=== PATIENT | male | born 2000 | race Two or more races ===

== ENCOUNTER 2023-05-12 07:18 | Outpatient (AMB) | payer MEDICAID, SELFPAY ==
--- NOTE | 2023-05-12 07:57 | A.OFFVIS_ITS ---
Intake Vital Signs 05/12/23 08:07 Height 6 ft 2 in Weight 131 lb BMI 16.8 BP 109/63 Blood Pressure Location Lt brachial Position Sitting Pulse 66 Intake Visit Reasons: Epigastric pain Intake Note: Patient new consult for Epigastric pain. Patient cc: abdominal pain, acid reflex with burning sensation,N/V and between diarrhea and constipation. Die Trouble Shooter Required: No Accompanied by: Self / Same As Patient Allergies No Known Allergies Allergy (Verified 05/12/23 07:56) HPI Epigastric pain HPI Details 22-year-old male with no significant pas t medical history comes here today for initial consultation. Patient sent by his PCP. Patient reports epigastric discomfort unable to eat, losing over 25 lb in the past 6 months. Patient tested positive for H pylori and started on antibiotics. Patient was unable to finish antibiotics as he was feeling very nauseous. Patient stopped taking omeprazole as well. Patient reports that he feels choking like feeling when he swallows food. Patient is okay to swallow liquids. Occasional nausea and vomiting. Patient also reports that he is not emptying his bowels regularly. Occasionally will have loose stools but then he will be constipated for few days. Patient reports that his diet is usually healthy does not eat food from restaurants. Eats home cooked meals. Patient feels stressed and worries about his health. Had to take semester off from school due to health reasons [facility] Social History (Updated 05/12/23 @ 08:00 by Yusra Adkins) Household Members: Family Alcohol intake: never Patient Tobacco Use Status: Never used Tobacco Review of Systems Const Denies weight gain and Denies weight loss ENT Reports no additional complaints, Reports dysphagia and Denies odynophagia Card Reports no additional complaints Resp Reports no additional complaints GI Reports abdominal pain (Epigastric), Denies belching, Denies melena, Reports bloating, Reports constipation, Reports dysphagia, Denies excessive flatus, Denies dyspepsia, Reports heartburn, Denies diarrhea, Reports loose stools, Denies nausea, Denies odynophagia and Denies vomiting Reports no additional complaints Musc Reports no additional complaints Neuro Reports no additional complaints Psych Reports no additional complaints Endo Reports no additional complaints Physical Exam Vital Signs: Last Vital Signs Pulse 66 05/12/23 08:07 BP 109/63 05/12/23 08:07 BMI result Body Mass Index 16.8 Const General: healthy appearing and no acute distress Nutritional Appearance: underweight Orientation/consciousness: patient oriented x3 HEENT Head: Yes normal to inspection, Yes normocephalic and Yes atraumatic Face and sinus: Yes normal facial exam Mouth: Normal oral and palatal mucosa present Throat: Yes posterior oropharynx normal, Yes tonsils normal and Yes uvula midline Eyes General: appearance normal, both eyes and all related structures Neck Neck: Yes normal visual inspection, Yes full ROM and Yes trachea midline Thyroid: Thyroid normal Resp Effort & Inspection: normal respiratory effort, able to speak in complete sentences, no tracheal deviation and symmetric chest movement Auscultation: clear to auscultation bilaterally Cardio Rate: regular rate Heart sounds: S1 normal heart sound present and S2 normal heart sound present GI Inspection: Yes normal to inspection and No distended Palpation (GI): Soft to palpation, not firm, nontender and No hepatosplenomegaly present Auscultation: normal bowel sounds General: Yes no CVA tenderness Back/Spine/Pelvis Back: no CVA tenderness Skin General skin exam: elasticity normal, turgor normal and dry skin Neuro General: patient oriented x3 Psych Appearance: grossly normal Mental Status: mental status grossly normal Speech and movement: Normal speech and movement present Assessment & Plan Assessment & Plan (1) Postprandial epigastric pain: Code(s): R10.13 - Epigastric pain (2) Weight loss, unintentional: Code(s): R63.4 - Abnormal weight loss (3) Constipation: Code(s): K59.00 - Constipation, unspecified Qualifiers: Constipation type: slow transit constipation Qualified Code(s): K59.01 - Slow transit constipation (4) GERD (gastroesophageal reflux disease): Code(s): K21.9 - Gastro-esophageal reflux disease without esophagitis Qualifiers: Esophagitis presence: esophagitis presence not specified Qualified Code(s): K21.9 - Gastro-esophageal reflux disease without esophagitis (5) Helicobacter pylori (H. pylori): Code(s): A04.8 - Other specified bacterial intestinal infections Plan Patient took about one week of antibiotics. Will recheck stool for H pylori. Will start patient on as omeprazole in the morning and sucralfate at bedtime. Will check lipase, transglutaminase, liver profile. Patient will start taking MiraLax daily. I will see him in 3 weeks, sooner on as needed basis. Patient is agreeable to this plan and verbalizes understanding of instructions. He was given the opportunity to ask questions and all questions answered. Thank you for allowing me to participate in his care Orders: Orders Transglutaminase Ab IgG Today R10.9 - Unspecified abdominal pain Lipase Today R10.9 - Unspecified abdominal pain Transglutaminase IgA Today R10.9 - Unspecified abdominal pain Liver Panel Today R10.9 - Unspecified abdominal pain TSH reflex Free T4 Today K59.00 - Constipation, unspecified H pylori Ag Stool Today K21.9 - Gastro-esophageal reflux disease without esophagitis Medications: New sucralfate 1 g PO BEDTIME 30 tabs 4RF R19.7 - Diarrhea, unspecified esomeprazole magnesium (Nexium) 40 mg PO DAILY 30 caps 5RF K21.9 - Gastro- esophageal reflux disease without esophagitis polyethylene glycol 3350 (Miralax) 17 grams PO DAILY 510 grams 2RF Coding Level of Care Code New Pt Level 4 (96849) Diagnoses Postprandial epigastric pain R10.13 Weight loss, unintentional R63.4 Slow transit constipation K59.01 Constipation type: slow transit constipation Gastroesophageal reflux disease, unspecified whether esophagitis present K21.9 Esophagitis presence: esophagitis presence not specified Helicobacter pylori (H. pylori) A04.8 Time Spent (min) 45 Comment 35 minutes spent with patient and additional 10 minutes spent reviewing his records
[2023-05-12 08:07] VITALS: BP 109/63; PULSE 66; BMI 16.8
== END 2023-05-12 08:31 | disposition home or self-care (01) ==
PROVIDERS: Visit Provider Nurse Practitioner Family
DX: R10.13 Epigastric pain (principal); R63.4 Abnormal weight loss; K59.01 Slow transit constipation; K21.9 Gastro-esophageal reflux disease without esophagitis; A04.8 Other specified bacterial intestinal infections
CPT/HCPCS: 99204

== ENCOUNTER 2023-05-12 07:18 | Outpatient (REF) | payer MEDICAID, SELFPAY ==
[2023-05-12 09:51] LABS: Alanine Aminotransferase 18 U/L (0-40); Albumin Level 4.7 g/dL (3.5-5.0); Alkaline Phosphatase 56 U/L (39-117); Aspartate Amino Transferase 21 U/L (5-37); Bilirubin Direct 0.2 mg/dL (0.0-0.5); Bilirubin Total 0.7 mg/dL (0.0-1.0); Lipase 53 U/L (8-78); Total Protein 7.8 g/dL (6.5-8.0)
[2023-05-12 10:09] LABS: TSH reflex Free T4 1.56 uIU/mL (0.32-4.0)
[2023-05-15 13:13] LABS: Transglutaminase Ab IgG <1.0 U/mL; Transglutaminase IgA <1.0 U/mL
== END 2023-05-12 07:19 | disposition home or self-care (01) ==
LOC: HO.LAB 07:18
PROVIDERS: Visit Provider Nurse Practitioner Family
DX: R10.9 Unspecified abdominal pain (principal); R63.4 Abnormal weight loss; K59.01 Slow transit constipation; K21.9 Gastro-esophageal reflux disease without esophagitis; A04.8 Other specified bacterial intestinal infections
CPT/HCPCS: 36415; 80076; 83690; 84443; 86364; 99212

== ENCOUNTER 2023-06-04 09:26 | Outpatient (AMB) | payer MEDICAID, SELFPAY ==
[2023-06-04 09:36] VITALS: BP 114/66; PULSE 67; BMI 17.3
--- NOTE | 2023-06-04 09:36 | A.OFFVIS_ITS ---
Intake Vital Signs 06/04/23 09:36 Height 6 ft 2 in Weight 134 lb 7.712 oz BMI 17.3 BP 114/66 Blood Pressure Location Rt brachial Position Sitting Pulse 67 Pulse Source Pulse Oximeter Intake Visit Reasons: 3 week follow up Intake Note: Patient is here for a 3 week follow up, no new complaints Allergies oats Allergy (Verified 06/06/23 13:33) Anaphylaxis HPI 3 week follow up HPI Details LAST VISIT Postprandial epigastric pain Weight loss, unintentional Constipation GERD (gastroesophageal reflux disease) Helicobacter pylori (H. pylori) Plan Patient took about one week of antibiotics. Will recheck stool for H pylori. Will start patient on as omeprazole in the morning and sucralfate at bedtime. Will check lipase, transglutaminase, liver profile. Patient will start taking MiraLax daily. I will see him in 3 weeks, sooner on as needed basis. Patient is agreeable to this plan and verbalizes understanding of instructions. He was given the opportunity to ask questions and all questions answered. TODAY'S VISIT Patient is here today for follow-up. Patient reports that he has been feeling little better, however he continues to have occasional dyspepsia with occasional dysphagia, without odynophagia. Patient reports that depending on what he eats he will have epigastric discomfort. Patient states that he is trying not to eat too much. Appetite decreased due to his symptoms. Patient did gain couple lb since last visit. Patient denies melena, hematochezia, ribbon like stools. Postprandial abdominal bloating with epigastric pain. H pylori testing was negative. Patient reports that he occasionally will be constipated. When he moves his bowels he does not feel like he empties them completely ? [facility] Medical History Helicobacter pylori (H. pylori) GERD (gastroesophageal reflux disease) Social History Household Members: Family Alcohol intake: never Patient Tobacco Use Status: Current everyday Tobacco user Cigarettes Per Day: 2 Review of Systems Const Denies weight gain and Denies weight loss ENT Reports no additional complaints, Denies dysphagia and Denies odynophagia Card Reports no additional complaints Resp Reports no additional complaints GI Reports abdominal pain, Denies belching, Denies melena, Reports bloating, Reports constipation, Denies dysphagia, Denies excessive flatus, Reports dyspepsia, Reports heartburn, Denies diarrhea, Denies loose stools, Denies naus ea, Denies odynophagia and Denies vomiting Reports no additional complaints Musc Reports no additional complaints Neuro Reports no additional complaints Psych Reports no additional complaints Endo Reports no additional complaints Physical Exam Vital Signs: Last Vital Signs Pulse 67 06/04/23 09:36 BP 114/66 06/04/23 09:36 BMI result Body Mass Index 17.3 Const General: healthy appearing, no acute distress and well developed Nutritional Appearance: underweight Orientation/consciousness: patient oriented x3 HEENT Head: Yes normal to inspection, Yes normocephalic and Yes atraumatic Face and sinus: Yes normal facial exam Mouth: Normal oral and palatal mucosa present Throat: Yes posterior oropharynx normal, Yes tonsils normal and Yes uvula midline Eyes General: appearance normal, both eyes and all related structures Neck Neck: Yes normal visual inspection, Yes full ROM and Yes trachea midline Thyroid: Thyroid normal Resp Effort & Inspection: normal respiratory effort, able to speak in complete sentences, no tracheal deviation and symmetric chest movement Auscultation: clear to auscultation bilaterally Cardio Rate: regular rate Heart sounds: S1 normal heart sound present and S2 normal heart sound present GI Inspection: Yes normal to inspection and No distended Palpation (GI): Soft to palpation, not firm, nontender and No hepatosplenomegaly present Auscultation: normal bowel sounds General: Yes no CVA tenderness Back/Spine/Pelvis Back: no CVA tenderness Skin General skin exam: elasticity normal, turgor normal and dry skin Neuro General: patient oriented x3 Psych Appearance: grossly normal Mental Status: mental status grossly normal Affect: normal affect Assessment & Plan Assessment & Plan (1) GERD (gastroesophageal reflux disease): Code(s): K21.9 - Gastro-esophageal reflux disease without esophagitis Qualifiers: Esophagitis presence: esophagitis presence not specified Qualified Code(s): K21.9 - Gastro-esophageal reflux disease without esophagitis (2) Early satiety: Code(s): R68.81 - Early satiety (3) History of Helicobacter pylori infection: Code(s): Z86.19 - Personal history of other infectious and parasitic diseases (4) Postprandial abdominal bloating: Code(s): R14.0 - Abdominal distension (gaseous) (5) Constipation: Code(s): K59.00 - Constipation, unspecified Qualifiers: Constipation type: slow transit constipation Qualified Code(s): K59.01 - Slow transit constipation Plan Patient continues to experience symptoms despite taking pantoprazole and sucralfate. Will send patient for upper endoscopy. Stool study negative for H pylori. Will send patient to check for pancreatic insufficiency. Patient reports severe abdominal bloating postprandially. Patient also reports that he feels full and has epigastric discomfort postprandially will send him for gastr ic emptying study. Patient reports that he is not emptying his bowels completely. Will send script for Senokot. Patient will see me after upper endoscopy, sooner on as needed basis. Patient is agreeable to this plan and verbalizes understanding of instructions. He was given the opportunity to ask questions and all questions answered. Thank you for allowing me to participate in his care Orders: Orders Pancreatic Elastase-1 06/04/23 R10.9 - Unspecified abdominal pain NM gastric emptying study 06/04/23 K21.9 - Gastro-esophageal reflux disease without esophagitis, R68.81 - Early satiety Medications: New sennosides (Natural Senna Laxative) 17.2 mg (2 x 8.6 mg) PO BEDTIME 60 tabs 1RF constipation K59.00 - Constipation, unspecified Coding Level of Care Code Est Pt Level 4 (11201) Diagnoses Gastroesophageal reflux disease, unspecified whether esophagitis present K21.9 Esophagitis presence: esophagitis presence not specified Early satiety R68.81 History of Helicobacter pylori infection Z86.19 Postprandial abdominal bloating R14.0 Slow transit constipation K59.01 Constipation type: slow transit constipation Time Spent (min) 35 Comment 20 minutes spent with patient and additional 15 minutes spent reviewing his records
== END 2023-06-04 10:25 | disposition home or self-care (01) ==
PROVIDERS: Visit Provider Nurse Practitioner Family
DX: K21.9 Gastro-esophageal reflux disease without esophagitis (principal); R68.81 Early satiety; Z86.19 Personal history of other infectious and parasitic diseases; K59.01 Slow transit constipation
CPT/HCPCS: 99214

== ENCOUNTER → 2023-06-04 09:26 | Outpatient (BNVA) | payer MEDICAID, SELFPAY | PROVIDERS: Visit Provider Nurse Practitioner Family | DX: K21.9 Gastro-esophageal reflux disease without esophagitis (principal); R68.81 Early satiety; R14.0 Abdominal distension (gaseous); K59.01 Slow transit constipation; Z86.19 Personal history of other infectious and parasitic diseases | CPT/HCPCS: 99212 ==

== ENCOUNTER 2023-06-06 13:01 | Day surgery (SDC) | payer MEDICAID, SELFPAY ==
--- NOTE | 2023-06-05 10:09 | P.CONAN_ITS ---
HPI - Anesthesia Eval Consult details Narrative: 22yo M for Upper Endoscopy [facility] Social History Social History Household Members: Family Alcohol intake: never Patient Tobacco Use Status: Never used Tobacco Meds Allergies Allergy/AdvReac Type Severity Reaction Status Date / Time No Known Allergies Allergy Verified 06/04/23 09:37 Exam Exam Date and Time: June 05, 2023 1009 Assessment and Plan Assessment Anesthesia Assessment: Chart Reviewed
[2023-06-06 13:08] VITALS: BMI 17.1
[2023-06-06 13:24] VITALS: BP 109/56; PULSE 42; RESP 16; TEMP 36.9; O2SAT 99
[2023-06-06] MEDS: Lactated Ringers 1,000 ML 100 ML IVCONT (13:31)
--- NOTE | 2023-06-06 14:18 | PC.NURSE ---
Verbal report to AYANNA Austin (PACU) assumed care bedside. Pt noted to be resting comfortably. Denies needs at this time.
--- NOTE | 2023-06-06 15:38 | P.CONAN_ITS ---
[facility] Past Medical History Medical History Helicobacter pylori (H. pylori) GERD (gastroesophageal reflux disease) Family History Family history of problems with anesthesia: No Surgical History History of Problems with Anesthesia: No Social History Social History Household Members: Family Alcohol intake: never Patient Tobacco Use Status: Current everyday Tobacco user Cigarettes Per Day: 2 Smoked in Last 30 Days: Yes Use of substances other than those prescribed or required for medical reasons: No Are you DNR?: No Advance Directives: No Advance Directives Information Provided: Yes Meds Allergies Allergy/AdvReac Type Severity Reaction Status Date / Time oats Allergy Anaphylaxis Verified 06/06/23 13:33 Active Medications: Current Medications Lactated Ringer's (Lr) 1,000 mls @ 100 mls/hr IVCONT .Q10H YVETTE Last Admin: 06/06/23 13:31 Dose: 100 mls/hr Exam Exam Date and Time: June 06, 2023 1538 Height,Weight and Vital Signs: Height 6 ft 2 in Weight 60.328 kg Last Vital Signs Temp 98.5 F 06/06/23 13:24 Pulse 42 L 06/06/23 13:24 Resp 16 06/06/23 13:24 BP 109/56 L 06/06/23 13:24 Pulse Ox 99 06/06/23 13:24 O2 Del Method Room Air 06/06/23 13:24 Airway Mallampati Class: II TM Dist: >3cm Neck ROM: Full Heart: RRR Lungs: CTA Assessment and Plan Assessment Anesthesia Assessment: Anesthesia Plan Discussed Final Anesthetic Review Family History of Problems with Anesthesia: No History of Problems with Anesthesia: No NPO: Yes ASA Class: II Final Preanesthetic Review: Meds/Allgs Chart Reviewed, Consent Obtained/Reviewed and Anes Risks/Benef Reviewed Patient Risk: Low Procedure Risk: Low Anesthetic Plan Anesthetic Plan: MAC: Disposition: Standard PACU
--- NOTE | 2023-06-06 15:51 | MHC.SHP ---
Pre-Procedural Eval Section A Date of Service: 06/06/23 The patient is an INPATIENT: No Changes since office visit: Yes Patient answered all questions; No Cold of Flu in the past 2 weeks, No New Medical Problems and No Changes in Medication The History & Physical has been completed within 30 days and I have reviewed it.: Yes Section B Chief Complaint: Epigastric pain, dysphagia, wt loss Allergies: Allergies Allergy/AdvReac Type Severity Reaction Status Date / Time oats Allergy Anaphylaxis Verified 06/06/23 13:33 Plan Diagnosis/Plan: Change (Proceed with EGD) I have reviewed the history and physical and performed a pertinent physical examination on my patient. No changes have occurred unless specified. Time Spent With Patient Time: Total time managing care of this patient today ____ minutes.
--- NOTE | 2023-06-06 15:57 | W.PM.OPN ---
Operative Note Operative Note Date of Service: 06/06/23 Narrative: FLEXIBLE TRANSORAL UPPER GASTROINTESTINAL ENDOSCOPY WITH BIOPSIES AND ESOPHAGEAL BALLOON DILATION Pre-op diagnosis: epigastric pain, dysphagia, weight loss Post-op diagnosis: dysphagia, gastritis Endoscopist:? Curtis Matthews MD Anesthesia:?MAC Consent: Indications for the procedure and potential complications of bleeding, perforation, reaction to medications and missed diagnosis were discussed with the patient and informed consent was obtained. Instrument: Olympus GIF H 190 mid size upper endoscope Monitoring: Vital signs and clinical assessment, continuous EKG monitoring, Pulse oximetry, Carbon Dioxide monitoring and blood pressure monitoring were done throughout the procedure. Procedure: The patient was placed in the left lateral decubitis position and pre-procedure medications were administered and a bite block was placed. The endoscope was inserted into the mouth and advanced under direct vision to the third part of duodenum. A careful inspection was made as the upper endoscope was withdrawn including a retroflexed examination of the proximal stomach; Findings and interventions are described below. Findings: Larynx: Normal Esophagus: GE junction at 40 cms. No esophagitis, Hogan's, stricture or ring. biopsies obtained from proximal esophagus to check for EOE. Empiric balloon dilation was performed with a 19 mm (57 F) CRE balloon x 60 seconds Stomach: Minimal gastric erythema. Biopsies were obtained. Grade 2 flap valve on retroflexed examination of the cardia. Duodenum: Normal bulb and descending duodenum. biopsies were obtained from 3rd part of the duodenum to check for celiac sprue Intervention: Biopsies and esophageal balloon dilation as noted above Impression and Post Procedure Diagnosis: Endoscopy Findings: ESOPHAGUS: No esophagitis, Hogan's, stricture or ring. biopsies obtained from proximal esophagus to check for EOE. Empiric balloon dilation was performed with a 19 mm (57 F) CRE balloon x 60 seconds STOMACH: Minimal gastric erythema. Biopsies were obtained. DUODENUM: Normal - biopsied for celiac sprue No clear etiology found for pt's symptoms Plan: Await pathology results Patient has an appointment on 06/24/23 in the GI [facility] with Jelly Scruggs FNP-BC. If biopsies are normal and symptoms persist, consider further evaluation with abdominal imaging for abdominal pain in barium swallow for dysphagia. Above findings were reviewed with the patient.
[2023-06-06 16:26] VITALS: BP 93/43; PULSE 57; RESP 16; TEMP 36.3; O2SAT 97
--- NOTE | 2023-06-06 16:29 | HO.POSTANES ---
Post Anesthesia Evaluation Post Anesthesia Evaluation Date of Service: 06/06/23 Vital Signs: Vital Signs Temp Pulse Resp BP Pulse Ox O2 Del Method 06/06/23 13:24 98.5 F 42 L 16 109/56 L 99 Room Air Anesthesia: Monitored Mental Status: Awake Pain Control: Satisfactory Nausea/Vomiting: None Hydration: Adequate Anesthesia-Related Issues: No Anes. Related Issues
[2023-06-06 16:41] VITALS: BP 102/63; PULSE 59; RESP 16; O2SAT 97
[2023-06-06 16:53] VITALS: BP 110/66; PULSE 50; RESP 18; TEMP 36.7; O2SAT 97
== END 2023-06-06 17:05 | disposition home or self-care (01) ==
PROVIDERS: Visit Provider Internal Medicine Gastroenterology
PROC: 0DJ08ZZ Inspection of Upper Intestinal Tract, Via Natural or Artificial Opening Endoscopic (ICD-10-PCS; CPT 43235; principal; 2023-06-06 14:40)
DX: R10.13 Epigastric pain (principal); R13.10 Dysphagia, unspecified; R63.4 Abnormal weight loss; Z68.1 Body mass index [BMI] 19.9 or less, adult; R68.81 Early satiety; K29.50 Unspecified chronic gastritis without bleeding; K21.9 Gastro-esophageal reflux disease without esophagitis; K59.00 Constipation, unspecified
CPT/HCPCS: 43249; 43239; 88305; 88342; C1726

== ENCOUNTER → 2023-06-06 13:01 | Outpatient (BNV) | payer MEDICAID, SELFPAY | PROVIDERS: Visit Provider Internal Medicine Gastroenterology | DX: R10.13 Epigastric pain (principal); R13.10 Dysphagia, unspecified; K29.70 Gastritis, unspecified, without bleeding | CPT/HCPCS: 43249 ==

== ENCOUNTER 2023-06-09 13:45 | Outpatient (REF) | payer MEDICAID, SELFPAY | END 2023-06-09 13:46 | disposition home or self-care (01) | LOC: HO.LNP 13:45 | PROVIDERS: Visit Provider Nurse Practitioner Family | DX: K21.9 Gastro-esophageal reflux disease without esophagitis (principal) | CPT/HCPCS: 87338 ==

== ENCOUNTER 2023-06-24 15:53 | Outpatient (AMB) | payer MEDICAID, SELFPAY ==
[2023-06-24 16:01] VITALS: BP 96/55; PULSE 73; BMI 17.2
--- NOTE | 2023-06-24 16:01 | MHC.OFFVIS ---
Intake Vital Signs 06/24/23 16:01 Height 6 ft 2 in Weight 134 lb BMI 17.2 BP 96/55 L Blood Pressure Location Lt brachial Position Sitting Pulse 73 Intake Visit Reasons: S/P EGD; Byron Intake Note: Patient follow up for EGD results. 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 Will send patient for upper endoscopy. Stool study negative for H pylori. Will send patient to check for pancreatic insufficiency. Patient reports severe abdominal bloating postprandially. Patient also reports that he feels full and has epigastric discomfort postprandially will send him for gastric emptying study. Patient reports that he is not emptying his bowels completely. Will send script for Senokot. Patient will see me after upper endoscopy, sooner on as needed basis. Patient is agreeable to this plan and verbalizes understanding of instructions. He was given the opportunity to ask questions and all questions answered. ? Thank you for allowing me to participate in his care Orders Orders Pancreatic Elastase-1 06/04/23 R10.9 NM gastric emptying study 06/04/23 K21.9, R68.81 Medications New sennosides (Natural Senna Laxative) 17.2 mg (2 x 8.6 mg) PO BEDTIME 60 tabs 1RF constipation K59.00 UPPER ENDO: Findings: Larynx: Normal Esophagus: GE junction at 40 cms. No esophagitis, Hogan's, stricture or ring. biopsies obtained from proximal esophagus to check for EOE. Empiric balloon dilation was performed with a 19 mm (57 F) CRE balloon x 60 seconds Stomach: Minimal gastric erythema. Biopsies were obtained. Grade 2 flap valve on retroflexed examination of the cardia. Duodenum: Normal bulb and descending duodenum. biopsies were obtained from 3rd part of the duodenum to check for celiac sprue Intervention: Biopsies and esophageal balloon dilation as noted above Impression and Post Procedure Diagnosis: Endoscopy Findings: ESOPHAGUS: No esophagitis, Hogan's, stricture or ring. biopsies obtained from proximal esophagus to check for EOE. Empiric balloon dilation was performed with a 19 mm (57 F) CRE balloon x 60 seconds STOMACH: Minimal gastric erythema. Biopsies were obtained. DUODENUM: Normal - biopsied for celiac sprue No clear etiology found for pt's symptoms Plan: If biopsies are normal and symptoms persist, consider further evaluation with abdominal imaging for abdominal pain in barium swallow for dysphagia. PATHOLOGY Diagnosis A. Small bowel, biopsy: Small bowel mucosa within normal limits; preserved villous architecture and no increased intraepithelial lymphocytes seen. B. Stomach, antrum, biopsy: Gastric antral mucosa with mild chronic inactive gastritis; negative for Helicobacter pylori, intestinal metaplasia and dysplasia. C. Esophagus, proximal, biopsy: Squamous mucosa within normal limits; negative for inflammation (including intraepithelial eosinophils), fungal organisms, intestinal metaplasia and dysplassia TODAY'S VISIT Patient is here today for follow-up and to discuss upper endoscopy results. Patient was found to have mild chronic gastritis. Patient reports that Nexium was helping, however couple days ago patient stopped taking it. Patient reports that he is having abdominal bloating postprandially. Patient reports that he is eating healthy at home. Is not eating out. Patient denies dyspepsia, dysphagia or odynophagia. Denies melena, hematochezia, unintentional weight loss or ribbon like stools. Patient reports that he is moving his bowels well and stop taking Senokot and MiraLax. [facility] Medical History Helicobacter pylori (H. pylori) GERD (gastroesophageal reflux disease) Social History Household Members: Family Alcohol intake: never Patient Tobacco Use Status: Current everyday Tobacco user Cigarettes Per Day: 2 Review of Systems Const Denies weight gain and Denies weight loss ENT Reports no additional complaints, Denies dysphagia and Denies odynophagia Card Reports no additional complaints Resp Reports no additional complaints GI Denies abdominal pain, Denies belching, Denies melena, Reports bloating, Denies change in bowel habits, Denies dysphagia, Denies excessive flatus, Denies dyspepsia, Denies heartburn, Denies diarrhea, Denies loose stools, Denies nausea, Denies odynophagia and Denies vomiting Reports no additional complaints Musc Reports no additional complaints Neuro Reports no additional complaints Psych Reports no additional complaints Endo Reports no additional complaints Physical Exam Vital Signs: Last Vital Signs Pulse 73 06/24/23 16:01 BP 96/55 L 06/24/23 16:01 BMI result Body Mass Index 17.2 Const General: healthy appearing, no acute distress and well developed Nutritional Appearance: underweight Orientation/consciousness: patient oriented x3 HEENT Head: Yes normal to inspection, Yes normocephalic and Yes atraumatic Face and sinus: Yes normal facial exam Mouth: Normal oral and palatal mucosa present Throat: Yes posterior oropharynx normal, Yes tonsils normal and Yes uvula midline Eyes General: appearance normal, both eyes and all related structures Neck Neck: Yes normal visual inspection, Yes full ROM and Yes trachea midline Thyroid: Thyroid normal Resp Effort & Inspection: normal respiratory effort, able to speak in complete sentences, no tracheal deviation and symmetric chest movement Auscultation: clear to auscultation bilaterally Cardio Rate: regular rate Heart sounds: S1 normal heart sound present and S2 normal heart sound present GI Inspection: Yes normal to inspection and No distended Palpation (GI): Soft to palpation, not firm, nontender and No hepatosplenomegaly present Auscultation: normal bowel sounds General: Yes no CVA tenderness Back/Spine/Pelvis Back: no CVA tenderness Skin General skin exam: elasticity normal, turgor normal and dry skin Neuro General: patient oriented x3 Psych Appearance: grossly normal Mental Status: mental status grossly normal Assessment & Plan Assessment & Plan (1) GERD (gastroesophageal reflux disease): Code(s): K21.9 - Gastro-esophageal reflux disease without esophagitis Qualifiers: Esophagitis presence: without esophagitis Qualified Code(s): K21.9 - Gastro-esophageal reflux disease without esophagitis (2) Early satiety: Code(s): R68.81 - Early satiety (3) History of Helicobacter pylori infection: Code(s): Z86.19 - Personal history of other infectious and parasitic diseases (4) Postprandial abdominal bloating: Code(s): R14.0 - Abdominal distension (gaseous) (5) Gastritis: Code(s): K29.70 - Gastritis, unspecified, without bleeding Qualifiers: Gastritis type: other gastritis Chronicity: chronic Gastritis bleeding: without bleeding Qualified Code(s): K29.50 - Unspecified chronic gastritis without bleeding Plan Gastritis found on upper endoscopy without H pylori. Patient has no esophagitis or duodenitis. Patient was encouraged to start taking Nexium again. Patient will avoid dietary triggers and late night snacking. Patient will follow low FODMAP diet. List of food recommended as well as list of food to avoid given to patient. Patient will watch what causes his postprandial abdominal bloating. Continue eating smaller meals and more often. Patient no longer has dysphagia. Still feels full quickly after eating. He has gastric emptying study in July. I will see him in 3 months, sooner on as needed basis. Patient is agreeable to this plan and verbalizes understanding of instructions. He was given the opportunity to ask questions and all questions answered. Medications: Refilled esomeprazole magnesium (Nexium) 40 mg PO DAILY 90 caps 1RF K21.9 - Gastro-esophageal reflux disease without esophagitis Coding Level of Care Code Est Pt Level 4 (73756) Diagnoses Gastroesophageal reflux disease without esophagitis K21.9 Esophagitis presence: without esophagitis Early satiety R68.81 History of Helicobacter pylori infection Z86.19 Postprandial abdominal bloating R14.0 Other chronic gastritis without hemorrhage K29.50 Gastritis type: other gastritis Chronicity: chronic Gastritis bleeding: without bleeding Time Spent (min) 35 Comment 25 minutes spent with patient and additional 10 minutes spent reviewing records
== END 2023-06-24 16:38 | disposition home or self-care (01) ==
PROVIDERS: PCP Nurse Practitioner Family; Visit Provider Nurse Practitioner Family
DX: K21.9 Gastro-esophageal reflux disease without esophagitis (principal); R68.81 Early satiety; Z86.19 Personal history of other infectious and parasitic diseases; R14.0 Abdominal distension (gaseous); K29.50 Unspecified chronic gastritis without bleeding
CPT/HCPCS: 99214

== ENCOUNTER → 2023-06-24 15:53 | Outpatient (BNVA) | payer MEDICAID, SELFPAY | PROVIDERS: PCP Nurse Practitioner Family; Visit Provider Nurse Practitioner Family | DX: K21.9 Gastro-esophageal reflux disease without esophagitis (principal); K29.50 Unspecified chronic gastritis without bleeding; R68.81 Early satiety; R14.0 Abdominal distension (gaseous); Z86.19 Personal history of other infectious and parasitic diseases | CPT/HCPCS: 99212 ==

== ENCOUNTER → 2023-07-02 08:31 | Outpatient (REF) | payer MEDICAID, SELFPAY ==
--- NOTE | ~2023-07-02 | NM_ITS ---
EXAMINATION: RADIONUCLIDE SOLID FOOD GASTRIC EMPTYING 4-HOUR STUDY CLINICAL INFORMATION: There is esophageal reflux disease without esophagitis. COMPARISON: No previous gastric emptying study is available for comparison. TECHNIQUE: A standard meal consisting of 4 oz of Egg Beaters brand equivalent tagged with 1 mCi Tc-99m Sulfur Colloid, 8 oz water and 2 slices of toast with jelly was administered orally to the patient. Images were obtained using a dual head gamma camera in the anterior and posterior projections over of the stomach immediately post ingestion and at hourly intervals up to 4 hours post ingestion. The anterior and posterior counts at each time interval were averaged using the geometric mean and expressed as percentage of the immediate post ingestion counts. FINDINGS: There is good visualization of activity in the stomach immediately post ingestion. As the study progresses, there is good clearance of activity from the stomach and visualization of progressively increasing small bowel activity. By the end of the study, there is almost no retention noted in the stomach. Retention in the stomach at each time interval was: 1 hour 65% (normal 37%-90%) 2 hours 29% (normal 30%-60%) 3 hours 14% 4 hours 8% (normal 0%-10%) ND/ND gastric emptying study IMPRESSION: Normal 4-hour solid food gastric emptying study. Gastric emptying study grading per JNMT Consensus Recommendations in 2008: https://tech.snmjournals.org/content/36/1/44 Grade 1 (mild retention): 11-20% at 4 hours Grade 2 (moderate retention): 21-35% at 4 hours Grade 3 (severe retention): 36-50% at 4 hours Grade 4 (very severe retention): >50% retention at 4 hours
== END ==
LOC: HO.NUCMED 08:31
PROVIDERS: PCP Nurse Practitioner Family; Visit Provider Nurse Practitioner Family
DX: K21.9 Gastro-esophageal reflux disease without esophagitis (principal); R68.81 Early satiety
CPT/HCPCS: 78264; A9541

== ENCOUNTER 2023-09-23 10:02 | Outpatient (AMB) | payer MEDICAID, SELFPAY ==
--- NOTE | 2023-09-23 10:05 | MHC.OFFVIS ---
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 Patient has no esophagitis or duodenitis. Patient was encouraged to start taking Nexium again. Patient will avoid dietary triggers and late night snacking. Patient will follow low FODMAP diet. List of food recommended as well as list of food to avoid given to patient. Patient will watch what causes his postprandial abdominal bloating. Continue eating smaller meals and more often. Patient no longer has dysphagia. Still feels full quickly after eating. He has gastric emptying study in July. I will see him in 3 months, sooner on as needed basis. Patient is agreeable to this plan and verbalizes understanding of instructions. He was given the opportunity to ask questions and all questions answered. Medications Refilled esomeprazole magnesium (Nexium) 40 mg PO DAILY 90 caps 1RF K21.9 TODAY'S VISIT Patient is here today for follow-up. Patient reports that he continues to have epigastric discomfort postprandially and bloating. Patient reports that he has been following FODMAP diet as best as he can. Was seen in the ER on the 08 of September at [facility] for epigastric pain. Patient takes Nexium in the morning. Patient was given GI cocktail with viscous lidocaine, sent home with famotidine, however patient reports that he has not filled the medication. His blood work was without any acute processes. No leukocytosis, normal lipase, normal liver enzymes. Patient reports that he only eats once a day as he is afraid that he will have pain when he is eating. Patient reports that he is moving his bowels well. Denies any nausea or vomiting. Reports occasional dyspepsia without dysphagia or odynophagia. Patient denies any melena, hematochezia, unintentional weight loss or ribbon like stools. [facility] Medical History Helicobacter pylori (H. pylori) GERD (gastroesophageal reflux disease) Social History Household Members: Family Alcohol intake: never Patient Tobacco Use Status: Current everyday Tobacco user Cigarettes Per Day: 2 Review of Systems Const Denies weight gain and Denies weight loss ENT Reports no additional complaints, Reports dysphagia (occasional) and Denies odynophagia Card Reports no additional complaints Resp Reports no additional complaints GI Denies abdominal pain, Denies belching, Denies melena, Reports bloating, Denies change in bowel habits, Reports dysphagia (occasional), Denies excessive flatus, Denies dyspepsia, Reports heartburn, Denies diarrhea, Denies loose stools, Denies nausea, Denies odynophagia and Denies vomiting Reports no additional complaints Musc Reports no additional complaints Neuro Reports no additional complaints Psych Reports no additional complaints Endo Reports no additional complaints Physical Exam Const General: healthy appearing and no acute distress Nutritional Appearance: underweight Orientation/consciousness: patient oriented x3 Resp Effort & Inspection: normal respiratory effort, able to speak in complete sentences, no tracheal deviation and symmetric chest movement Auscultation: clear to auscultation bilaterally Cardio Rate: regular rate GI Inspection: Yes normal to inspection and No distended Palpation (GI): Soft to palpation, not firm, nontender and No hepatosplenomegaly present Auscultation: normal bowel sounds General: Yes no CVA tenderness Back/Spine/Pelvis Back: no CVA tenderness Skin General skin exam: elasticity normal, turgor normal and dry skin Neuro General: patient oriented x3 Psych Appearance: grossly normal Mental Status: mental status grossly normal Assessment & Plan Assessment & Plan (1) Weight loss, unintentional: Code(s): R63.4 - Abnormal weight loss (2) GERD (gastroesophageal reflux disease): Code(s): K21.9 - Gastro-esophageal reflux disease without esophagitis Qualifiers: Esophagitis presence: esophagitis presence not specified Qualified Code(s): K21.9 - Gastro-esophageal reflux disease without esophagitis (3) Early satiety: Code(s): R68.81 - Early satiety (4) History of Helicobacter pylori infection: Code(s): Z86.19 - Personal history of other infectious and parasitic diseases (5) Postprandial abdominal bloating: Code(s): R14.0 - Abdominal distension (gaseous) (6) Gastritis: Code(s): K29.70 - Gastritis, unspecified, without bleeding Qualifiers: Gastritis type: other gastritis Chronicity: chronic Gastritis bleeding: without bleeding Qualified Code(s): K29.50 - Unspecified chronic gastritis without bleeding Plan Will add sucralfate to treatment. Patient was encouraged to take it every night. Will send patient to see a tree thinner. Patient was encouraged to drink protein shakes to help him gain weight. Encourage patient to go and get stool study to rule out pancreatic insufficiency. Will order Creon to treat his symptoms of postprandial abdominal bloating. Patient was encouraged to eat 3 to 4 times a day. Continue Nexium. Discussed with patient avoiding dietary triggers and late night snacking. Staying upright for minimum 3 hours after meals discussed with patient. I will see patient in 4 weeks, sooner on as needed basis. Patient is agreeable to this plan and verbalizes understanding of instructions. He was given the opportunity to ask questions all questions answered. Thank you for allowing me to participate in his care Orders: Referrals Title I Instructional Assistant Nutrition Referral R63.4 - Abnormal weight loss Medications: New [id number] 12,000-38,000 -60,000 unit (Creon) administer with meals and/or snacks 1 cap PO QID 120 caps 3RF R10.9 - Unspecified abdominal pain sucralfate 1 g PO BEDTIME 30 tabs 1RF R19.7 - Diarrhea, unspecified Refilled esomeprazole magnesium (Nexium) 40 mg PO DAILY 90 caps 1RF K21.9 - Gastro-esophageal reflux disease without esophagitis Coding Level of Care Code Est Pt Level 4 (04924) Diagnoses Weight loss, unintentional R63.4 Gastroesophageal reflux disease, unspecified whether esophagitis present K21.9 Esophagitis presence: esophagitis presence not specified Early satiety R68.81 History of Helicobacter pylori infection Z86.19 Postprandial abdominal bloating R14.0 Other chronic gastritis without hemorrhage K29.50 Gastritis type: other gastritis Chronicity: chronic Gastritis bleeding: without bleeding Time Spent (min) 35 Comment 20 minutes spent with patient and additional 15 minutes spent reviewing his records
[2023-09-23 10:26] VITALS: BP 98/52; PULSE 62; BMI 16.6
== END 2023-09-23 11:02 | disposition home or self-care (01) ==
PROVIDERS: PCP Nurse Practitioner Family; Visit Provider Nurse Practitioner Family
DX: R63.4 Abnormal weight loss (principal); K21.9 Gastro-esophageal reflux disease without esophagitis; R68.81 Early satiety; Z86.19 Personal history of other infectious and parasitic diseases; R14.0 Abdominal distension (gaseous); K29.50 Unspecified chronic gastritis without bleeding
CPT/HCPCS: 99214

== ENCOUNTER → 2023-09-23 10:02 | Outpatient (BNVA) | payer MEDICAID, SELFPAY | PROVIDERS: PCP Nurse Practitioner Family; Visit Provider Nurse Practitioner Family | DX: R63.4 Abnormal weight loss (principal); Z68.1 Body mass index [BMI] 19.9 or less, adult; K21.9 Gastro-esophageal reflux disease without esophagitis; R68.81 Early satiety; R14.0 Abdominal distension (gaseous); K29.50 Unspecified chronic gastritis without bleeding; Z86.19 Personal history of other infectious and parasitic diseases | CPT/HCPCS: 99212 ==

== ENCOUNTER 2023-10-09 11:46 | Outpatient (REF) | payer MEDICAID, SELFPAY ==
[2023-10-18 00:24] LABS: Pancreatic Elastase-1 >500 mcg/g
== END 2023-10-09 11:47 | disposition home or self-care (01) ==
LOC: HO.LNP 11:46
PROVIDERS: Visit Provider Nurse Practitioner Family
DX: R10.9 Unspecified abdominal pain (principal)
CPT/HCPCS: 82656

== ENCOUNTER 2023-10-21 15:11 | Outpatient (AMB) | payer MEDICAID, SELFPAY ==
[2023-10-21 15:25] VITALS: BP 106/65; PULSE 63; BMI 17.0
--- NOTE | 2023-10-21 15:25 | MHC.OFFVIS ---
Intake Vital Signs 10/21/23 15:25 Height 6 ft 2 in Weight 132 lb 4.438 oz BMI 17.0 BP 106/65 Blood Pressure Location Lt brachial Position Sitting Pulse 63 Intake Visit Reasons: 4 week follow up Intake Note: Kolby presents as a 4 week follow up. CC: He states that his stomach is bloating - he states it occurs even when he does not eat. No irregular bowel movements. Blood once when he had a BM. 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 Patient was encouraged to take it every night. Will send patient to see a design engineer agricultural equipment. Patient was encouraged to drink protein shakes to help him gain weight. Encourage patient to go and get stool study to rule out pancreatic insufficiency. Will order Creon to treat his symptoms of postprandial abdominal bloating. Patient was encouraged to eat 3 to 4 times a day. Continue Nexium. Discussed with patient avoiding dietary triggers and late night snacking. Staying upright for minimum 3 hours after meals discussed with patient. I will see patient in 4 weeks, sooner on as needed basis. Patient is agreeable to this plan and verbalizes understanding of instructions. He was given the opportunity to ask questions all questions answered. ? Thank you for allowing me to participate in his care Orders Referrals Oceanologist Nutrition Referral R63.4 Medications New [id number] 12,000-38,000 -60,000 unit (Creon) administer with meals and/or snacks 1 cap PO QID 120 caps 3RF R10.9 sucralfate 1 g PO BEDTIME 30 tabs 1RF R19.7 Refilled esomeprazole magnesium (Nexium) 40 mg PO DAILY 90 caps 1RF K21.9 TODAY'S VISIT: Patient is here today for follow-up. Patient reports that his symptoms are better. Patient no longer wakes up in the morning with severe epigastric pain and nausea. Patient reports that actually in the morning he now has appetite. He is taking sucralfate at bedtime and Nexium in the morning. Patient states that he is taking Creon with meals to prevent abdominal bloating, however he continues to have abdominal bloating not always related to food. Sometimes patient will have abdominal bloating 2-3 hours after meals. Patient reports that he has better appetite. Reports that he is moving his bowels without any issues. Denies any constipation or diarrhea. Awaiting to see design engineer agricultural equipment. Still occasional epigastric discomfort not related to food PFSH Medical History Helicobacter pylori (H. pylori) GERD (gastroesophageal reflux disease) Social History Household Members: Family Alcohol intake: never Patient Tobacco Use Status: Current everyday Tobacco user Cigarettes Per Day: 2 Review of Systems Const Denies weight gain and Denies weight loss ENT Reports no additional complaints, Denies dysphagia and Denies odynophagia Card Reports no additional complaints Resp Reports no additional complaints GI Denies abdominal pain, Denies belching, Denies melena, Denies bloating, Denies change in bowel habits, Denies dysphagia, Denies excessive flatus, Denies dyspepsia, Denies heartburn, Denies diarrhea, Denies loose stools, Denies nausea, Denies odynophagia and Denies vomiting Reports no additional complaints Musc Reports no additional complaints Neuro Reports no additional complaints Psych Reports no additional complaints Endo Reports no additional complaints Physical Exam Vital Signs: Last Vital Signs Pulse 63 10/21/23 15:25 BP 106/65 10/21/23 15:25 BMI result Body Mass Index 17.0 Const General: healthy appearing, no acute distress and well developed Nutritional Appearance: underweight Orientation/consciousness: patient oriented x3 Resp Effort & Inspection: normal respiratory effort, able to speak in complete sentences, no tracheal deviation and symmetric chest movement Auscultation: clear to auscultation bilaterally Cardio Rate: regular rate GI Inspection: Yes normal to inspection and No distended Palpation (GI): Soft to palpation, not firm, nontender and No hepatosplenomegaly present Auscultation: normal bowel sounds General: Yes no CVA tenderness Back/Spine/Pelvis Back: no CVA tenderness Skin General skin exam: elasticity normal, turgor normal and dry skin Neuro General: patient oriented x3 Psych Appearance: grossly normal Mental Status: mental status grossly normal Assessment & Plan Assessment & Plan (1) Weight loss, unintentional: Code(s): R63.4 - Abnormal weight loss (2) GERD (gastroesophageal reflux disease): Code(s): K21.9 - Gastro-esophageal reflux disease without esophagitis Qualifiers: Esophagitis presence: esophagitis presence not specified Qualified Code(s): K21.9 - Gastro-esophageal reflux disease without esophagitis (3) History of Helicobacter pylori infection: Code(s): Z86.19 - Personal history of other infectious and parasitic diseases (4) Gastritis: Code(s): K29.70 - Gastritis, unspecified, without bleeding Qualifiers: Gastritis type: unspecified gastritis Chronicity: chronic Gastritis bleeding: without bleeding Qualified Code(s): K29.50 - Unspecified chronic gastritis without bleeding Plan Will send patient for CT enterography to rule out any involvement in small-bowel patient will continue to take sucralfate at bedtime and Nexium in the morning. Continue taking Creon as it helps. Patient was encouraged to eat smaller meals and more often. I will see him in 5 weeks, sooner on as needed basis. Patient is agreeable to this plan and verbalizes understanding of instructions. He was given the opportunity to ask questions and all questions answered Thank you for allowing me to participate in his care Orders: Orders CT enterography 10/21/23 K21.9 - Gastro-esophageal reflux disease without esophagitis, K29.70 - Gastritis, unspecified, without bleeding, R63.4 - Abnormal weight loss, Z86.19 - Personal history of other infectious and parasitic diseases Medications: Refilled sucralfate 1 g PO BEDTIME 60 tabs 2RF K21.9 - Gastro-esophageal reflux disease without esophagitis, K29.70 - Gastritis, unspecified, without bleeding Coding Level of Care Code Est Pt Level 4 (37198) Diagnoses Weight loss, unintentional R63.4 Gastroesophageal reflux disease, unspecified whether esophagitis present K21.9 Esophagitis presence: esophagitis presence not specified History of Helicobacter pylori infection Z86.19 Chronic gastritis without bleeding, unspecified gastritis type K29.50 Gastritis type: unspecified gastritis Chronicity: chronic Gastritis bleeding: without bleeding Time Spent (min) 35 Comment 20 minutes spent with patient and additional 15 minutes spent reviewing his records
== END 2023-10-21 15:55 | disposition home or self-care (01) ==
LOC: HO.HGI 15:12
PROVIDERS: PCP Nurse Practitioner Family; Visit Provider Nurse Practitioner Family
DX: R63.4 Abnormal weight loss (principal); K21.9 Gastro-esophageal reflux disease without esophagitis; Z86.19 Personal history of other infectious and parasitic diseases; K29.50 Unspecified chronic gastritis without bleeding
CPT/HCPCS: 99214

== ENCOUNTER → 2023-10-21 15:11 | Outpatient (BNVA) | payer MEDICAID, SELFPAY | PROVIDERS: PCP Nurse Practitioner Family; Visit Provider Nurse Practitioner Family | DX: R63.4 Abnormal weight loss (principal); K21.9 Gastro-esophageal reflux disease without esophagitis; K29.50 Unspecified chronic gastritis without bleeding; Z86.19 Personal history of other infectious and parasitic diseases | CPT/HCPCS: 99212 ==

== ENCOUNTER 2023-10-30 12:38 | Outpatient (REF) | payer MEDICAID, SELFPAY ==
--- NOTE | ~2023-10-30 | CT_ITS ---
EXAMINATION: CT ENTEROGRAPHY ABDOMEN AND PELVIS WITH CONTRAST CLINICAL INFORMATION: Abnormal weight loss COMPARISON: None available. TECHNIQUE: Study performed with oral VoLumen (1500 mL) and 480 mL of water to distend the abdomen. The patient was injected with 85 mL Omnipaque 350 intravenous contrast which was administered without adverse effect. Coronal and sagittal reformatted images were obtained at the technologist's workstation. This CT examination was performed using dose optimization techniques as appropriate, variously including the following: *Automated exposure control *Adjustment of mA and/or kV according to patient size (this includes techniques or standardized protocols for targeted exams where dose is matched to indication/reason for exam; i.e. extremities or head) *Use of iterative reconstruction technique DLP: 260.65 mGy-cm FINDINGS: GASTROINTESTINAL FINDINGS: Stomach: Well-distended and normal in appearance. Small intestine: Satisfactorily distended and normal in appearance. Large intestine: Diffuse mild fecal distention of the entire colon is seen, most prominent in the ascending and sigmoid colon. Rectum is moderately distended with air and feces. No perirectal changes demonstrated. The appendix cannot be identified. Additional findings: No abnormal enhancement of the vasa recta or significant mesenteric or retroperitoneal lymphadenopathy is seen. No abdominal abscess or fistulous tract demonstrated. FINDINGS: LUNG BASES: Bilateral lung bases are clear. LIVER: No focal lesion is seen in the liver. GALLBLADDER AND BILIARY TREE: Gallbladder appears unremarkable without calcified stones. Common bile duct is not dilated. SPLEEN: The spleen is normal in size without focal lesion. PANCREAS: The pancreas appears unremarkable. ADRENAL GLANDS: Adrenal glands are normal in size without focal lesion bilaterally. KIDNEYS: Bilateral kidneys are normal in size without focal lesion. RETROPERITONEUM: No abnormally enlarged retroperitoneal lymph nodes, mass or hematoma could be seen. BLOOD VESSELS: Abdominal aorta is normal in size and smoothly patent. ABDOMINAL WALL: Abdominal subcutaneous tissue and muscle are intact. No evidence of ventral hernia. PERITONEUM: There was no ascites. There were no abdominal peritoneal inflammatory changes seen. No free peritoneal air was seen. No abnormally enlarged mesenteric lymph nodes are found. BONES: No fracture or dislocation. No focal bone lesion diagnostic of metastatic disease could be seen in the lumbar region. EXAMINATION: CT pelvis. TECHNIQUE: Multiple axial images were obtained from iliac crest to the inferior pubic rami following the administration of 100 mL of Omnipaque 300. Coronal and sagittal images were reconstructed from axial image data. Dose reduction technique: One or more of the following individual dose optimization techniques were used including: Automated exposure control, mA and/or kV were adjusted according to patient size or iterative reconstruction. FINDINGS: URINARY BLADDER: Urinary bladder fills normally with urine. GENITAL ORGANS: Seminal vesicles are unremarkable. Prostate gland is normal. LYMPH NODES: No abnormally enlarged iliac or inguinal lymph nodes are seen. PERITONEUM: No inflammatory changes, ascites or free peritoneal air are found in the pelvis. BONES: No fracture or dislocation. No focal bone lesion diagnostic of metastatic disease could be seen in the pelvis. CT/CT enterography IMPRESSION: 1. Diffuse mild fecal distention of the entire colon is seen, most prominent in the ascending and sigmoid colon, compatible with constipation. 2. No evidence of bowel obstruction or inflammatory bowel disease.
[2023-10-30] MEDS: iohexoL 350 MG/ML 100 ML INFUS..BTL 85 ML IV (14:21)
[2023-10-30] MEDS: Sorbitol/Mannit/Xanth Imaging 500 ML LIQUID 1500 ML PO (14:21)
== END 2023-10-30 12:39 | disposition home or self-care (01) ==
LOC: HO.CT 12:38
PROVIDERS: PCP Nurse Practitioner Family; Visit Provider Nurse Practitioner Family
DX: R63.4 Abnormal weight loss (principal); K21.9 Gastro-esophageal reflux disease without esophagitis; K29.70 Gastritis, unspecified, without bleeding; Z86.19 Personal history of other infectious and parasitic diseases
CPT/HCPCS: 74177; Q9967

== ENCOUNTER 2023-11-20 08:28 | Outpatient (AMB) | payer MEDICAID, SELFPAY ==
[2023-11-20 09:02] VITALS: BMI 16.9
--- NOTE | 2023-11-20 09:02 | A.OFFVIS_ITS ---
Intake VS Expanded 11/20/23 09:02 12/01/23 20:48 Height 6 ft 2 in 6 ft 2 in Weight 131 lb 13.383 oz 132 lb BMI 16.9 16.9 Intake Visit Reasons: Abnormal Weight Loss/CONFIRMED Allergies oats Allergy (Verified 11/25/23 15:19) Anaphylaxis HPI Nutrition Presentation Details Pt presents for MNT for GERD . Pt was referred by Brady Scruggs from GI -lost about 20 lbs in over a year ,worklaurence hugo on gradually gaining weight - reports currently not taking creon Drinks water with meals, no juices/soda/milk likes sugary pastries Eats rice/chicken IKG-Dxmnipe-Nw.Jeor Equation Height 6 ft 2 in Weight 132 lb Resting Metabolic Rate 1654.89 Calculated Activity Level Sedentary Calories Needed to Maintain Weight 1985.87 Diagnosis Nutrition problem #1 underweight and inadequate energy intake As related to (etiology) #1 diagnosis (GERD) and increased energy needs As evidenced by (sign/symptom) #1 low BMI (16.9 (10/2023)) Monitoring/Goals Nutrition problem monitoring total PRO intake, weight and oral fluids Outcome progress verbalized understanding Learning/Education Readiness to learn good Most Recent Diabetes Results: No Data to Display [facility] Medical History Helicobacter pylori (H. pylori) GERD (gastroesophageal reflux disease) Social History Household Members: Family Alcohol intake: never Patient Tobacco Use Status: Current everyday Tobacco user Cigarettes Per Day: 2 Assessment & Plan Assessment & Plan (1) Abnormal weight loss: Code(s): R63.4 - Abnormal weight loss Plan Work on gradually adding 500 -1000 calorie to daily intake to promote weight gain, choosing low acidic foods Wt: 60 Kg ( 10/2023 ) Est kcal needs as per MSJ: 2000 (40% carb, 30% protein/fat) Est fluid needs as per 25-30 ml/d: 1800 Est prot per day as per 1 g/kg bw: 60 Recommend fiber intake : 8-10 g per day and gradually increase to 25-28 g per day for women and 35-38 g for men or as tolerated Recommend sodium intake per day : less than 2000 mg Educated patient on: ( R = reviewed V = verbalizes understanding N/R = needs review N/A = not applicable * Food sources of carbohydrate, adequate serving sizes and its role in various health conditions: R * Differences between complex carbohydrates a simple carbohydrates, role of fiber in diet: R * Lean protein sources of foods: R * Vitamins and minerals: R * Healthy plate method concept: R * Physical activity: Benefits a precaution: R V N/R * Patient Instructions: Eat 5-6 small meals per day , avoid going longer than 4 hours without meals Have nutrient dense beverages with meals/snacks: 1/2 sand and glass of milk as example consider adding a tsp of oil to 2 of your meals on a daily basis. see nutrient dense foods to gradually include in your diet , adding 500 calories daily Coding Level of Care Code Nutr Indiv Intake (62630) Diagnoses Abnormal weight loss R63.4 Time Spent (min) 30
[2023-12-01 20:48] VITALS: BMI 16.9
== END 2023-11-20 09:39 | disposition home or self-care (01) ==
PROVIDERS: PCP Nurse Practitioner Family; Visit Provider Dietitian, Registered
DX: R63.4 Abnormal weight loss (principal)

== ENCOUNTER → 2023-11-20 08:28 | Outpatient (BNVA) | payer MEDICAID, SELFPAY | PROVIDERS: PCP Nurse Practitioner Family; Visit Provider Dietitian, Registered | DX: R63.4 Abnormal weight loss (principal) | CPT/HCPCS: 97802 ==

== ENCOUNTER 2023-11-25 15:10 | Outpatient (AMB) | payer MEDICAID, SELFPAY ==
[2023-11-25 15:19] VITALS: BP 116/74; PULSE 60; BMI 16.7
--- NOTE | 2023-11-25 15:19 | MHC.OFFVIS ---
Intake Vital Signs 11/25/23 15:19 Height 6 ft 2 in Weight 130 lb 1.164 oz BMI 16.7 BP 116/74 Blood Pressure Location Lt brachial Position Sitting Pulse 60 Intake Visit Reasons: 5 week follow up Intake Note: Kolby presents in the office as a 5 week follow up. CC: All the same concerns as last visit. Allergies oats Allergy (Verified 11/25/23 15:19) Anaphylaxis HPI 5 week follow up HPI Details LAST VISIT Weight loss, unintentional GERD (gastroesophageal reflux disease) History of Helicobacter pylori infection Gastritis Plan Will send patient for CT enterography to rule out any involvement in small-bowel patient will continue to take sucralfate at bedtime and Nexium in the morning. Continue taking Creon as it helps. Patient was encouraged to eat smaller meals and more often. I will see him in 5 weeks, sooner on as needed basis. Patient is agreeable to this plan and verbalizes understanding of instructions. He was given the opportunity to ask questions and all questions answered ? Thank you for allowing me to participate in his care Orders Orders CT enterography 10/21/23 K21.9, K29.70, R63.4, Z86.19 Medications Refilled sucralfate 1 g PO BEDTIME 60 tabs 2RF K21.9, K29.70 TODAY'S VISIT: Patient is here today for follow-up and to discuss CT enterography results. No acute findings except for constipation. Patient states that he is taking senna and continues to be constipated. His symptoms of dyspepsia are under control with Nexium. Patient has seen residential field manager last week to help him with nutritional plan to help him gain weight. Patient feels like maybe because he is so constipated he has no appetite. Patient was fasting last month for protestant reasons. Patient denies any nausea or vomiting. Denies any melena, hematochezia, unintentional weight loss or ribbon like stools. Patient does admit occasional abdominal cramping specially if no BM. Patient also reports abdominal bloating postprandially. [facility] Medical History Helicobacter pylori (H. pylori) GERD (gastroesophageal reflux disease) Social History Household Members: Family Alcohol intake: never Patient Tobacco Use Status: Current everyday Tobacco user Cigarettes Per Day: 2 Review of Systems Const Denies weight gain and Denies weight loss ENT Reports no additional complaints, Denies dysphagia and Denies odynophagia Card Reports no additional complaints Resp Reports no additional complaints GI Denies abdominal pain, Denies belching, Denies melena, Denies bloating, Denies change in bowel habits, Denies dysphagia, Denies excessive flatus, Denies dyspepsia, Denies heartburn, Denies diarrhea, Denies loose stools, Denies nausea, Denies odynophagia and Denies vomiting Reports no additional complaints Musc Reports no additional complaints Neuro Reports no additional complaints Psych Reports no additional complaints Endo Reports no additional complaints Physical Exam Vital Signs: Last Vital Signs Pulse 60 11/25/23 15:19 BP 116/74 11/25/23 15:19 BMI result Body Mass Index 16.7 Const General: healthy appearing, no acute distress and well developed Nutritional Appearance: well nourished Orientation/consciousness: patient oriented x3 Resp Effort & Inspection: normal respiratory effort, able to speak in complete sentences, no tracheal deviation and symmetric chest movement Auscultation: clear to auscultation bilaterally Cardio Rate: regular rate GI Inspection: Yes normal to inspection and No distended Palpation (GI): Soft to palpation, not firm, nontender and No hepatosplenomegaly present Auscultation: normal bowel sounds General: Yes no CVA tenderness Back/Spine/Pelvis Back: no CVA tenderness Skin General skin exam: elasticity normal, turgor normal and dry skin Neuro General: patient oriented x3 Psych Appearance: grossly normal Mental Status: mental status grossly normal Results Reviewed Results Reviewed: FINDINGS: GASTROINTESTINAL FINDINGS: Stomach: Well-distended and normal in appearance. Small intestine: Satisfactorily distended and normal in appearance. Large intestine: Diffuse mild fecal distention of the entire colon is seen, most prominent in the ascending and sigmoid colon. Rectum is moderately distended with air and feces. No perirectal changes demonstrated. The appendix cannot be identified. Additional findings: No abnormal enhancement of the vasa recta or significant mesenteric or retroperitoneal lymphadenopathy is seen. No abdominal abscess or fistulous tract demonstrated. FINDINGS: LUNG BASES: Bilateral lung bases are clear. LIVER: No focal lesion is seen in the liver. GALLBLADDER AND BILIARY TREE: Gallbladder appears unremarkable without calcified stones. Common bile duct is not dilated. SPLEEN: The spleen is normal in size without focal lesion. PANCREAS: The pancreas appears unremarkable. ADRENAL GLANDS: Adrenal glands are normal in size without focal lesion bilaterally. KIDNEYS: Bilateral kidneys are normal in size without focal lesion. RETROPERITONEUM: No abnormally enlarged retroperitoneal lymph nodes, mass or hematoma could be seen. BLOOD VESSELS: Abdominal aorta is normal in size and smoothly patent. ABDOMINAL WALL: Abdominal subcutaneous tissue and muscle are intact. No evidence of ventral hernia. PERITONEUM: There was no ascites. There were no abdominal peritoneal inflammatory changes seen. No free peritoneal air was seen. No abnormally enlarged mesenteric lymph nodes are found. BONES: No fracture or dislocation. No focal bone lesion diagnostic of metastatic disease could be seen in the lumbar region. EXAMINATION: CT pelvis. TECHNIQUE: Multiple axial images were obtained from iliac crest to the inferior pubic rami following the administration of 100 mL of Omnipaque 300. Coronal and sagittal images were reconstructed from axial image data. Dose reduction technique: One or more of the following individual dose optimization techniques were used including: Automated exposure control, mA and/or kV were adjusted according to patient size or iterative reconstruction. FINDINGS: URINARY BLADDER: Urinary bladder fills normally with urine. GENITAL ORGANS: Seminal vesicles are unremarkable. Prostate gland is normal. LYMPH NODES: No abnormally enlarged iliac or inguinal lymph nodes are seen. PERITONEUM: No inflammatory changes, ascites or free peritoneal air are found in the pelvis. BONES: No fracture or dislocation. No focal bone lesion diagnostic of metastatic disease could be seen in the pelvis. Assessment & Plan Assessment & Plan (1) Weight loss, unintentional: Code(s): R63.4 - Abnormal weight loss (2) GERD (gastroesophageal reflux disease): Code(s): K21.9 - Gastro-esophageal reflux disease without esophagitis Qualifiers: Esophagitis presence: esophagitis presence not specified Qualified Code(s): K21.9 - Gastro-esophageal reflux disease without esophagitis (3) History of Helicobacter pylori infection: Code(s): Z86.19 - Personal history of other infectious and parasitic diseases (4) Gastritis: Code(s): K29.70 - Gastritis, unspecified, without bleeding Qualifiers: Gastritis type: superficial Chronicity: chronic Gastritis bleeding: without bleeding Qualified Code(s): K29.30 - Chronic superficial gastritis without bleeding (5) Constipation: Code(s): K59.00 - Constipation, unspecified Qualifiers: Constipation type: slow transit constipation Qualified Code(s): K59.01 - Slow transit constipation Plan Will order Linzess for patient to help him move his bowels better. Patient will be sent for colonoscopy. CT enterography did not show any acute processes, no inflammation. Patient was encouraged to increase fluid intake and activity to promote better bowel motility. Continue high protein diet, follows dietitian's recommendations. Continue Nexium. Patient will stop sucralfate as this is also contributing probably to his constipation. I will see him in 5-6 weeks, sooner on as needed basis. We will book colonoscopy today. Patient is agreeable to this plan and verbalizes understanding of instructions. He was given the opportunity to ask questions and all questions answered. Thank you for allowing me to participate in his care Medications: New linaclotide (Linzess) 145 mcg PO DAILY 30 caps 2RF Coding Level of Care Code Est Pt Level 4 (25957) Diagnoses Weight loss, unintentional R63.4 Gastroesophageal reflux disease, unspecified whether esophagitis present K21.9 Esophagitis presence: esophagitis presence not specified History of Helicobacter pylori infection Z86.19 Chronic superficial gastritis without bleeding K29.30 Gastritis type: superficial Chronicity: chronic Gastritis bleeding: without bleeding Slow transit constipation K59.01 Constipation type: slow transit constipation Time Spent (min) 35 Comment 20 minutes spent with patient and additional 15 minutes spent reviewing his records
== END 2023-11-25 15:34 | disposition home or self-care (01) ==
PROVIDERS: PCP Nurse Practitioner Family; Visit Provider Nurse Practitioner Family
DX: R63.4 Abnormal weight loss (principal); K21.9 Gastro-esophageal reflux disease without esophagitis; Z86.19 Personal history of other infectious and parasitic diseases; K29.30 Chronic superficial gastritis without bleeding; K59.01 Slow transit constipation
CPT/HCPCS: 99214

== ENCOUNTER → 2023-11-25 15:10 | Outpatient (BNVA) | payer MEDICAID, SELFPAY | PROVIDERS: PCP Nurse Practitioner Family; Visit Provider Nurse Practitioner Family | DX: K21.9 Gastro-esophageal reflux disease without esophagitis (principal); K29.30 Chronic superficial gastritis without bleeding; K59.01 Slow transit constipation; R63.4 Abnormal weight loss; Z86.19 Personal history of other infectious and parasitic diseases | CPT/HCPCS: 99212 ==